=== PATIENT | male | born 1995 | race Caucasian/White ===

== ENCOUNTER 2022-07-28 04:11 | Emergency (ER) | payer BC ==
[~2022-07-28] VITALS: Ht 180.3 cm; Wt 93.2 kg
[2022-07-28 04:24] VITALS: BP 150/96; TEMP 98.3
[2022-07-28 05:02] VITALS: PULSE 93
== END 2022-07-28 05:02 | disposition home or self-care (01) ==
LOC: COL.ER 04:11
DX: H10.13 Acute atopic conjunctivitis, bilateral (principal)
CPT/HCPCS: J8540